=== PATIENT | male | born 1995 | race African-American/Black ===

== ENCOUNTER 2021-10-11 12:54 | Emergency (ER) | payer OTHER, SELFPAY ==
[2021-10-11 13:02] VITALS: BP 148/85; PULSE 71; RESP 16; TEMP 36.6; O2SAT 100
--- NOTE | 2021-10-11 14:08 | ED.DENTAL ---
HPI - Dental/Oral General Chief complaint: Dental/Oral Stated complaint: dental pain Time Seen by Provider: 10/11/21 13:53 Source: patient History of Present Illness HPI Narrative: Patient presents with dental pain. Ports he had pain for the past 4 days is primarily on his lower posterior teeth he has been taking Tylenol ibuprofen which helps for a little bit but then his pain returns. His pain is achy, constant, worse with chewing, radiates to the side of his face. Reports he has not seen a dentist. Patient also voiced concerns about a rash on his right upper extremity and back. Reports the rash has been there for several years he is attempted multiple topical creams without relief so he wanted to get checked out since he was here in the ER. Teeth map: 1. Pain Related Data Allergies Allergy/AdvReac Type Severity Reaction Status Date / Time No Known Allergies Allergy Unverified 09/25/14 09:28 Review of Systems Review of Systems: CONSTITUTIONAL: Denies fever, chills, or sweats. EYES: Denies visual changes, redness, or discharge. ENT: Denies rhinorrhea, congestion, sore throat, or otalgia. CARDIOVASCULAR: Denies chest pain, palpitations, or edema. RESPIRATORY: Denies cough or dyspnea. GASTROINTESTINAL: Denies abdominal pain, nausea, vomiting, or diarrhea. GENITOURINARY: Denies dysuria or hematuria. SKIN: Denies rash or itching. MUSCULOSKELETAL: Denies back pain, joint pain, or myalgia. NEUROLOGIC: Denies headache, numbness, dizziness, or weakness. PSYCHIATRIC: Denies anxiety or depression. All systems reviewed & are unremarkable except as noted in HPI and below PMFSH Past Medical History Medical History (Updated 10/11/21 @ 14:15 by Jose Luis Edwards MD) Patient denies significant medical history Social History Social History (Updated 10/11/21 @ 14:11 by Jose Luis Edwards MD) Substance use: never Exam Narrative: GENERAL: Well-appearing, well-nourished, and in no acute distress. HEAD: Normocephalic, atraumatic. EYES: PERRLA and EOMI. ENT: Nares clear, no rhinorrhea or epistaxis. Mucous membranes moist. Tenderness palpation in tooth 18 mild edema noted at the base no obvious fluid collections no apparent material expressed NECK: Supple. No masses. No JVD EXTREMITIES: Normal range of motion. No edema. SKIN: Warm, dry, white discoloration noted on the right upper extremity as well as on the neck and face there are no raised lesions there is no ulcerations there is no focal tenderness there is no edema there is no erythema there is no excoriation NEURO: No focal deficits. Alert and oriented x3. PSYCH: Normal mood and affect. Course Vital Signs Vital signs: Vital Signs Temperature 36.6 C 10/11/21 13:02 Pulse Rate 71 10/11/21 13:02 Respiratory Rate 16 10/11/21 13:02 Blood Pressure 148/85 H 10/11/21 13:02 Pulse Oximetry 100 10/11/21 13:02 Temperature 36.6 C 10/11/21 13:02 Pulse Rate 71 10/11/21 13:02 Respiratory Rate 16 10/11/21 13:02 Blood Pressure 148/85 H 10/11/21 13:02 Pulse Oximetry 100 10/11/21 13:02 MDM - Dental/Oral MDM Narrative Medical decision making narrative: H&P as above, vss, pt looks clinically well, exam with possible dental abscess, labs/img considered, symptomatic relief available as needed, on reevaluation pt continues to looks clinically well. Suspect dental abscess rashes of unclear etiology may represent vitiligo, dns airway compromise, severe sepsis, severe dehydration, Arpita's angina?is not suggestive of SJS, TEN. plan to tx/monitor as op w/ pcm f/u findings/plan discussed with pt, pt agree/comfortable with plan, return precautions given Discharge Plan Discharge Clinical Impression: Abscess, dental, Rash Patient Disposition: Home, Self-Care Condition: Improved Instructions: Antibiotic Form, Dental Abscess (ED) Additional Instructions: Please return if your symptoms worsen or fail to improve. If you develop a fever, can not eat/drink anythi
== END 2021-10-11 14:32 | disposition home or self-care (01) ==
PROVIDERS: Emergency Provider Emergency Medicine
DX: K04.7 Periapical abscess without sinus (principal); R21 Rash and other nonspecific skin eruption
CPT/HCPCS: 99283